=== PATIENT | male | born 1995 | race African-American/Black ===

== ENCOUNTER 2016-07-20 09:32 | Emergency (ER) | payer OTHER ==
[~2016-07-20] VITALS: Ht 177.8 cm; Wt 65.3 kg
--- NOTE | 2016-07-20 10:04 | Emergency Room Report ---
History of Present Illness General Chief Complaint: Upper Respiratory Illness Source: Patient Present Illness HPI Patient reports cough, dry with some intermittent mucus production, worse in the mornings and evenings. This is persistent for approximately 3 weeks. He does work a [employer]i and has sick contacts frequently. He's 21 without a history of asthma, pneumonia, history of smoking or allergies per his report. No wheezing reported, intermittent frequent cough primary complaint. Allergies: Coded Allergies: No Known Allergies (Unverified , 07/20/16) Patient History Past Medical History: see triage record Social History: Denies: drug use, smoking Immunizations: UTD Reviewed Nursing Documentation: PMH: Agreed Nursing Documentation-PM Past Medical History: No Stated History Review of Systems ENT: Reports: nasal discharge Respiratory: Reports: cough, sputum All Other Systems: negative except mentioned in HPI Physical Exam Vital Signs Date Time Temp Pulse Resp B/P Pulse Ox O2 Delivery O2 Flow Rate FiO2 07/20/16 09:55 98.2 54 20 121/72 100 Room Air Sp02 EP Interpretation: reviewed, normal General Appearance: normal inspection, well appearing, no apparent distress, alert Head: atraumatic Eyes: bilateral eye normal inspection ENT: hearing grossly normal, normal voice, nasal congestion Neck: normal inspection, full range of motion, supple, no bony tend Respiratory: normal inspection, lungs clear, normal breath sounds, no respiratory distress, no retraction, no wheezing Cardiovascular #1: regular rate, rhythm, no edema Gastrointestinal: normal inspection, normal bowel sounds, non tender, soft, no guarding, no hernia Genitourinary: no CVA tenderness Musculoskeletal: normal inspection, back normal, normal range of motion Neurologic: normal inspection, alert, responsive, speech normal Psychiatric: normal inspection, judgement/insight normal, mood/affect normal Skin: normal inspection, normal color, no rash Medical Decision Making Diagnostic Impression: Primary Impression: Upper respiratory infection ER Course patient here with a 3 week course of coughing somewhat mild production sputum. Generally healthy individual. With obvious nasal congestion and no wheezing or crackles on exam. We'll get a screening x-ray based on the chronicity of the symptoms. He may benefit from a course of amoxicillin as well as cough suppressant. Chest x-ray is nonrevealing, we'll prescribe the patient cough syrup, decongestions and allergy medications. Chest X-Ray Diagnostic Results Time: 12:19 EP Interpretation: Yes Findings: no consolidation, no effusion, no pneumothorax, no acute cardiopulmonary disease Number of Views: 1 Other X-Ray Diagnostic Results Other X-Ray Diagnostic Results : X-Ray Ordered: cchest x-ray Date: Jul 20, 2016 Time: 11:02 EP Interpretation: Yes Findings: no dislocation, no soft tissue swelling Number of Views: 1 Reevaluation Time: 11:26 Last Vital Signs Date Time Temp Pulse Resp B/P Pulse Ox O2 Delivery O2 Flow Rate FiO2 07/20/16 09:55 98.2 54 20 121/72 100 Room Air Status: unchanged Disposition: HOME, SELF-CARE Condition: Stable Scripts Loratadine (LORATADINE) 10 Mg Tablet 10 MG PO DAILY for 28 Days, TAB Prov: Gregorio Santos MD 07/20/16 Pseudoephedrine Hcl (SUDAFED 12 HOUR) 120 Mg Tablet.er 120 MG PO BID for 10 Days, #30 TAB Prov: Gregorio Santos MD 07/20/16 Guaifenesin/D-Methorphan Hb/PE (Robitussin M-S Cold Cf Max Liq) 118 Ml Liquid 118 ML PO EVERY 6 HOURS for 10 Days, ML Prov: Gregorio Santos MD 07/20/16 Gregorio Santos MD Jul 20, 2016 10:04
[2016-07-20 10:24] VITALS: BP 121/72
[2016-07-20] MEDS ORDERED: [UNRECOGNIZED DRUG - OTHER] PO (11:06)
[2016-07-20] MEDS ORDERED: SUDAFED 12 HOU120 M1 PO (11:06)
[2016-07-20] MEDS ORDERED: LORATADINE10 M2 PO (11:06)
[2016-07-20 11:12] VITALS: BP 125/71
[2016-07-20 11:14] VITALS: BP 125/71
--- NOTE | 2016-07-22 15:53 | Diagnostic Imaging Report ---
Indication: Cough Technique: PA and lateral views of the chest. Findings: Comparison: None The bones and extra pulmonary soft tissues, cardiomediastinal silhouette, pulmonary vasculature and parenchyma, and pleural surfaces are unremarkable. IMPRESSION: Negative PA and lateral chest radiographs
== END 2016-07-20 11:15 | disposition home or self-care (01) ==
LOC: EMR 10:04
DX: J06.9 Acute upper respiratory infection, unspecified (principal)
CPT/HCPCS: 71020; 99283

== ENCOUNTER 2017-01-09 08:34 | Emergency (ER) | payer OTHER ==
[~2017-01-09] VITALS: Ht 177.8 cm; Wt 70.3 kg
[~2017-01-09 08:34] MED LIST: LORATADINE10 M2 PO; SUDAFED 12 HOU120 M1 PO; [UNRECOGNIZED DRUG - OTHER] PO
[2017-01-09 08:38] VITALS: BP 124/77
[2017-01-09] MEDS ORDERED: AMOXICILLIN500 MG ORAL (08:50)
[2017-01-09 09:03] VITALS: BP 124/77
--- NOTE | 2017-01-09 09:29 | Emergency Room Report ---
History of Present Illness General Source: Patient Present Illness HPI 21-year-old male presents ED complaining of sore throat x2 weeks. 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 Patient notes runny nose and cough. Denies any fevers or chills. Symptoms have persisted despite taking [id number] medications. Denies sick contacts or recent travel. Pain is a 7/10, aching, nonradiating. No other aggravating or relieving factors. Denies any other associated symptoms Allergies: Coded Allergies: No Known Allergies (Unverified , 07/20/16) Patient History Past Medical History: none Past Surgical History: none Pertinent Family History: none Social History: Denies: alcohol use, drug use, smoking Immunizations: UTD Reviewed Nursing Documentation: PMH: Agreed, PSxH: Agreed Nursing Documentation-PMH Past Medical History: No Stated History Review of Systems All Other Systems: negative except mentioned in HPI Physical Exam Vital Signs Date Time Temp Pulse Resp B/P Pulse Ox O2 Delivery O2 Flow Rate FiO2 01/09/17 08:38 97.7 63 18 124/77 98 Room Air Sp02 EP Interpretation: reviewed, normal General Appearance: no apparent distress, alert, GCS 15, non-toxic Head: normocephalic Eyes: bilateral eye PERRL, bilateral eye normal inspection ENT: hearing grossly normal, no angioedema, normal voice, TMs + canals normal, pharyngeal erythema Neck: full range of motion, supple/symm/no masses Respiratory: chest non-tender, lungs clear, normal breath sounds, speaking full sentences Cardiovascular #1: regular rate, rhythm, no edema Gastrointestinal: normal inspection Rectal: deferred Genitourinary: no CVA tenderness Musculoskeletal: normal inspection Neurologic: normal inspection Psychiatric: normal inspection Skin: normal inspection Lymphatic: normal inspection Medical Decision Making Diagnostic Impression: Primary Impression: Pharyngitis Qualified Codes: J02.9 - Acute pharyngitis, unspecified ER Course Hospital Course 21-year-old male presents to ED complaining of sore throat x 2 weeks Differential diagnoses include: URI, pharyngitis, otitis media Clinical course Patient placed on stretcher. After initial history, physical exam reveals a young male in no acute distress. Bilateral TM unremarkable. There is pharyngeal erythema w/o tonsillar exudates. No lymphadenopathy. Clinical findings consistent with pharyngitis. Reassurance given Diagnosis - pharyngitis Stable and discharged home with prescriptions for amoxicillin. Instructed to followup with PMD. return to ED if symptoms recur or worsen Last Vital Signs Date Time Temp Pulse Resp B/P Pulse Ox O2 Delivery O2 Flow Rate FiO2 01/09/17 09:03 97.7 63 18 124/77 98 Room Air Status: improved Disposition: HOME, SELF-CARE Condition: Stable Scripts Amoxicillin* (AMOXIL*) 500 Mg Capsule 500 MG ORAL THREE TIMES A DAY, #21 CAP Prov: MAINE PAZ M.D. 01/09/17 MAINE PAZ M.D. Jan 09, 2017 09:29
== END 2017-01-09 09:00 | disposition home or self-care (01) ==
LOC: EMR 08:47
DX: J02.9 Acute pharyngitis, unspecified (principal)
CPT/HCPCS: 99283

== ENCOUNTER 2017-09-10 10:18 | Emergency (ER) | payer OTHER ==
[~2017-09-10] VITALS: Ht 177.8 cm; Wt 63.5 kg
[~2017-09-10 10:18] MED LIST changes: +AMOXICILLIN500 MG ORAL
[2017-09-10 10:33] VITALS: BP 127/85
[2017-09-10] MEDS ORDERED: TESSALON PERLE100 MG ORAL (10:33)
--- NOTE | 2017-09-10 10:41 | Emergency Room Report ---
History of Present Illness General Chief Complaint: Upper Respiratory Illness Source: Patient Present Illness HPI 22-year-old male no significant past medical history p/w cough for 14 days. Pt states cough is dry. Denies fever chills sob or chest pain. Denies runny nose or myalgias. No sick contacts or recent travel. Patient states that he got over a recent viral illness a few weeks ago. Only smokes occasionally. Has been eating and drinking well Allergies: Coded Allergies: No Known Allergies (Unverified , 07/20/16) Patient History Past Medical History: see triage record Past Surgical History: none Pertinent Family History: none Reviewed Nursing Documentation: PMH: Agreed, PSxH: Agreed Nursing Documentation-PMH Past Medical History: No Stated History Review of Systems All Other Systems: negative except mentioned in HPI Physical Exam Vital Signs Date Time Temp Pulse Resp B/P (MAP) Pulse Ox O2 Delivery O2 Flow Rate FiO2 09/10/17 10:26 98.5 99 18 126/87 98 Room Air 98.4 Sp02 EP Interpretation: reviewed, normal General Appearance: normal inspection, well appearing, no apparent distress, alert, GCS 15, non-toxic Head: normocephalic, atraumatic Eyes: bilateral eye normal inspection, bilateral eye PERRL, bilateral eye EOMI ENT: normal ENT inspection, normal pharynx, normal voice, moist mucus membranes Neck: normal inspection, full range of motion, supple Respiratory: normal inspection, lungs clear, normal breath sounds, no respiratory distress, no retraction, no wheezing, speaking full sentences, chest symmetrical Cardiovascular #1: normal inspection, regular rate, rhythm, no edema, normal capillary refill Cardiovascular #2: 2+ radial (R), 2+ radial (L) Gastrointestinal: normal inspection, non tender, soft, non-distended, no guarding Genitourinary: no CVA tenderness Musculoskeletal: normal inspection, back normal, normal range of motion, non- tender Neurologic: normal inspection, alert, oriented x3, responsive, motor strength/ tone normal, sensory intact, normal gait, speech normal Psychiatric: normal inspection, judgement/insight normal, memory normal Skin: normal inspection, normal color, no rash, warm/dry, well hydrated, normal turgor Medical Decision Making Diagnostic Impression: Primary Impression: Chronic cough ER Course 22-year-old male with cough for 2 weeks DDX: Likely postviral cough No concern for pneumonia, no fever no chills lung exam is normal Plan: None ER course: Patient remains nontoxic, not in resp distress. Disposition: Patient is to be discharged home with a prescription of Jennifersalon Sosa Strict precautions discussed with patient on when to return to the emergency room including hemoptysis, high fevers, chills, SOB, chest pain which may indicate severe illness. Patient is to follow up with their primary care doctor within 5 days. Patient agrees with plan. Please note that this Emergency Department Report was dictated using [employer] analyst technology software, occasionally this can lead to erroneous entry secondary to interpretation by the dictation equipment Last Vital Signs Date Time Temp Pulse Resp B/P (MAP) Pulse Ox O2 Delivery O2 Flow Rate FiO2 09/10/17 10:33 89 18 Room Air 09/10/17 10:33 98.6 127/85 99 98.6 Disposition: HOME, SELF-CARE Condition: Improved Scripts Benzonatate* (TESSALON PERLE*) 100 Mg Capsule 100 MG ORAL THREE TIMES A DAY, #21 PERLE Prov: Bethany Suarez M.D. 09/10/17 Referrals: [facility] (PCP) Patient Instructions: Cough, Adult, [id number] Additional Instructions: PLEASE FOLLOW UP WITH YOUR DOCTOR IN 1 WEEK Bethany Suarez M.D. Sep 10, 2017 10:41
[2017-09-10 10:45] VITALS: BP 127/85
== END 2017-09-10 10:45 | disposition home or self-care (01) ==
LOC: EMR 10:33
DX: R05 Cough (principal)
CPT/HCPCS: 99283